=== PATIENT | female | born 1960 | race Two or more races ===

== ENCOUNTER 2019-05-11 12:46 | Emergency (ER) | payer OTHER ==
[~2019-05-11] VITALS: Ht 165.1 cm; Wt 66.2 kg
[2019-05-11 12:51] VITALS: BP 161/100
[2019-05-11] MEDS ORDERED: predniSONE 20 MG TABLET ONE (13:15)
[2019-05-11] MEDS ORDERED: predniSONE 10 MG TABLET ONE (13:15)
[2019-05-11] MEDS ORDERED: DEXAMETHASONE SOD PHOSPHATE 10 MG/ML VIAL ONE (13:15)
[2019-05-11] MEDS ORDERED: DEXAMETHASONE SOD PHOSPHATE 10 MG/ML VIAL IM ONE (13:30)
[2019-05-11] MEDS ORDERED: predniSONE 50 MG TABLET PO ONE (13:30)
--- NOTE | 2019-05-11 13:37 | NUR ---
Patient discharged to home in stable condition. Written and verbal after care instructions given. Patient verbalizes understanding of instruction.
== END 2019-05-11 13:36 | disposition home or self-care (01) ==
LOC: ER 12:46
DX: R21 Rash and other nonspecific skin eruption (principal); T78.1XXA Other adverse food reactions, not elsewhere classified, initial encounter; X58.XXXA Exposure to other specified factors, initial encounter
CPT/HCPCS: 99283; J7512 ×2; J1100